=== PATIENT | female | born 1995 | race Caucasian/White ===

== ENCOUNTER 2018-03-09 13:03 | Emergency (ER) | payer BC ==
[2018-03-09 15:15] VITALS: BP 125/82
--- NOTE | 2018-03-09 15:31 | RAD ---
Indication: [place] pop today and unable to bear weight on RIGHT leg. History of patella luz elena. Comparison: None. Technique: RIGHT knee: AP, tunnel, lateral, sunrise views. Report: Small suprapatellar joint effusion. Negative for fracture. Patella luz elena. Articular alignment is otherwise normal. Preserved joint spaces. Mild anteromedial soft tissue swelling. IMPRESSION: Nonspecific joint effusion. Negative for lateral subluxation of the patella or air-fluid opposing fracture pattern to confirm sequela of patellofemoral dislocation.
--- NOTE | 2018-03-09 18:40 | ED ---
Kade Carreno Stephanie, scribed for Abhilash Alfred MD on 03/09/18 at 1457 . Lower Extremity - HPI Summary HPI Summary: The pt is a 22 y/o F presenting to the ED with c/o knee pain that began yesterday s/p fall at The pt states both of her patellas moved out of place when she fell. She cannot fully extend her R knee. - History of Current Complaint Chief Complaint: EDExtremityLower Stated Complaint: FALL, RT KNEE PAIN Time Seen by Provider: 03/09/18 14:48 Hx Obtained From: Patient Mechanism Of Injury: Other - fall Onset of Pain: Days - 1 Onset/Duration: Days - 1 Severity Currently: Moderate Pain Intensity: 4 Pain Scale Used: 0-10 Numeric Timing: Constant Location: Is Discrete @ - R knee Aggravating Factor(s): Movement Alleviating Factor(s): Nothing Able to Bear Weight: No - Allergies/Home Medications Allergies/Adverse Reactions: Allergies Allergy/AdvReac Type Severity Reaction Status Date / Time No Known Allergies Allergy Verified 03/09/18 13:10 Home Medications: Home Medications Unobtainable [Unobtainable] 03/09/18 [History Confirmed 03/09/18] PMH/Surg Hx/FS Hx/Imm Hx Musculoskeletal History: Reports: Other Musculoskeletal History - patella luz elena Sensory History: Denies: Hx Legally Blind EENT History: Denies: Hx Deafness - Surgical History Surgery Procedure, Year, and Place: NONE Infectious Disease History: No Infectious Disease History: Denies: Traveled Outside the [place] in Last 30 Days - Family History Known Family History: Negative: Renal Disease - Social History Occupation: Student Lives: Dormitory/Roommates Alcohol Use: None Hx Substance Use: No Substance Use Type: Reports: None Hx Tobacco Use: No Smoking Status (MU): Never Smoked Tobacco Have You Smoked in the Last Year: No Review of Systems Negative: Fever Positive: Other - R knee pain Negative: Slurred Speech All Other Systems Reviewed And Are Negative: Yes Physical Exam - Summary Physical Exam Summary: Appearance: Well appearing, no pain distress Skin: warm, dry, reflects adequate perfusion Head/face: normal Eyes: EOMI, DEVON ENT: normal Neck: supple, non-tender Respiratory: CTA, breath sounds present Cardiovascular: RRR, pulses symmetrical Abdomen: non-tender, soft Bowel Sounds: present Musculoskeletal: strength/ROM intact, small effusion on R knee, no laxity with varus or valgus stress, Char anterior drawer is negative, negative Ava sign Neuro: normal, sensory motor intact, A&Ox3 Triage Information Reviewed: Yes Vital Signs On Initial Exam: Initial Vitals Temp Pulse Resp BP Pulse Ox 98.6 F 104 14 112/72 100 03/09/18 13:06 03/09/18 13:06 03/09/18 13:06 03/09/18 13:06 03/09/18 13:06 Vital Signs Reviewed: Yes Diagnostics - Vital Signs Vital Signs Temp Pulse Resp BP Pulse Ox 03/09/18 13:06 98.6 F 104 14 112/72 100 - Laboratory Lab Statement: Any lab studies that have been ordered have been reviewed, and results considered in the medical decision making process. - Radiology Knee XRay Xray Interpretation: No Acute Changes - Patient Name: BRENDAN PALOMINO Medical Record#: [id number] Ordering Physician: Abhilash Alfred MD Acct.#: [id number] : 1995 Age: 22 Sex: F Location: EMERGENCY DEPARTMENT Exam Date: 03/09/18 1341 ADM Status: DEP ER Order Information: KNEE RIGHT 4+ VWS Accession Number: [id number] CPT: 79197 Indication: [place] pop today and unable to bear weight on RIGHT leg. History of patella luz elena. Comparison: None. Technique: RIGHT knee: AP, tunnel, lateral, sunrise views. Report: Small suprapatellar joint effusion. Negative for fracture. Patella luz elena. Articular alignment is otherwise normal. Preserved joint spaces. Mild anteromedial soft tissue swelling. IMPRESSION: Nonspecific joint effusion. Negative for lateral subluxation of the patella or air-fluid opposing fracture pattern to confirm sequela of patellofemoral dislocation. <Electronically signed by Yoshi Kitchen MD in OV> 03/09/18 1528 Dictated By: Yoshi Kitchen MD Dictated Date/ Time: 03/09/18 1528 Transcribed Date/Time: 03/09/18 1523 Copy to: CC:[facility] - MR; Abhilash Alfred MD Imaging - [facility] Imaging - [facility] Imaging - [facility] [address] [facility] [address] [place] [id number] [place] [address] [place] [address] ph [phone]) ph ([phone]) ph ([phone]) 1 of 1 Radiology Interpretation Completed By: Radiologist - Nonspecific joint effusion. Negative for lateral subluxation of the patella or air-fluid opposing fracture pattern to confirm sequela of patellofemoral dislocation. ED physician has reviewed this report. 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 She had this occur yesterday and both knees. She now has medial tenderness and small effusion of her right knee. The patella is located. Her knee is stable through comparison valgus force. Likely is MCL strain. There is no crepitance to the joint. Arun wrap applied, patient is already on crutches. Given referral to orthopedics for follow-up. - Diagnoses Provider Diagnoses: Sprain of medial collateral ligament of right knee Discharge - Sign-Out/Discharge Documenting (check all that apply): Discharge/Admit/Transfer - discharge - Discharge Plan Condition: Stable Disposition: HOME Patient Education Materials: Knee Sprain (ED) Forms: *School Release Referrals: [facility] - Ken MARTINEZ [Primary Care Provider] - Kelsey Selby MD [Medical Doctor] - Additional Instructions: Call for an appointment with the orthopedist. Wear a KNEED-IT brace as described. Arun wrap the affected knee. Crutches as needed. Ibuprofen or Aleve as needed for discomfort. Return if worse or other concerns. - Billing Disposition and Condition Condition: STABLE Disposition: HOME The documentation as recorded by the Kade werner Stephanie accurately reflects the service I personally performed and the decisions made by , Abhilash Alfred MD.
== END 2018-03-09 15:14 | disposition home or self-care (01) ==
LOC: ED 13:03
DX: S83.411A Sprain of medial collateral ligament of right knee, initial encounter (principal); W19.XXXA Unspecified fall, initial encounter; Y92.9 Unspecified place or not applicable
CPT/HCPCS: 99282